=== PATIENT | female | born 1950 | race Caucasian/White ===

== ENCOUNTER 2021-12-21 05:47 | Emergency (ER) | payer MEDICARE, OTHER ==
[2021-12-21] MEDS ORDERED: Alum Hydrox/Mag Hydrox/Simeth 30 ML, Lidocaine 2% 15 ML PO STA ×2 (06:21)
[2021-12-21 08:38] VITALS: BP 142/87; PULSE 78
== END 2021-12-21 08:30 | disposition home or self-care (01) ==
LOC: JD.ED 05:47
DX: K21.9 Gastro-esophageal reflux disease without esophagitis (principal); E78.00 Pure hypercholesterolemia, unspecified; E66.9 Obesity, unspecified; Z68.34 Body mass index [BMI] 34.0-34.9, adult; Z91.048 Other nonmedicinal substance allergy status; Z91.041 Radiographic dye allergy status; Z79.899 Other long term (current) drug therapy
CPT/HCPCS: 36415; 71046; 80053; 83690; 84484; 85025; 85379; 93005; 99285; A9270; 93010; 99284